=== PATIENT | male | born 1990 | race Caucasian/White ===

== ENCOUNTER → 2020-06-10 | Outpatient (CLI) | payer OTHER ==
[~2020-06-10] MED LIST: CLARITIN 10MG T10 MG PO; HYDROXYZINE HCL10 MG PO; LISINOPRIL10 MG PO; LORTAB 7.5-3251 EACH PO; PROAIR HFA8.5 GM INH
[2020-06-10 12:48] LABS: BUN/CREATININE RATIO 12 (0-10)
[2020-06-11 08:13] LABS: ALPHA-1-ANTITRYPSIN, SERUM 124 mg/dL (95-164)
[2020-06-11 09:13] LABS: HBSAG SCREEN Negative (Negative); HEP A AB, IGM Negative (Negative); HEP B CORE AB, IGM Negative (Negative); HEP C VIRUS AB <0.1 (0.0-0.9)
[2020-06-11 16:13] LABS: MITOCHONDRIAL (M2) ANTIBODY <20.0 Units (0.0-20.0)
== END ==
LOC: LAB 11:35
PROVIDERS: Family Medicine
DX: I10 Essential (primary) hypertension (principal); R74.8 Abnormal levels of other serum enzymes; R94.5 Abnormal results of liver function studies
CPT/HCPCS: 80053; 80074; 80076; 82103; 82728; 83540; 83550; 83735; 84550; 86038

== ENCOUNTER → 2020-11-14 | Outpatient (CLI) | payer OTHER ==
[2020-11-14 10:34] LABS: BUN/CREATININE RATIO 14 (0-10)
[2020-11-15 07:13] LABS: IMMUNOGLOBULIN A, QN, SERUM 215 mg/dL (90-386); IMMUNOGLOBULIN G, QN, SERUM 1201 mg/dL (603-1613); IMMUNOGLOBULIN M, QN, SERUM 111 mg/dL (20-172)
== END ==
LOC: LAB 08:19
PROVIDERS: Family Medicine; Internal Medicine Gastroenterology
DX: E78.5 Hyperlipidemia, unspecified (principal); I10 Essential (primary) hypertension; R74.8 Abnormal levels of other serum enzymes
CPT/HCPCS: 36415; 80053; 80061; 82784; 83516; 83735; 84550; 86038

== ENCOUNTER 2021-07-16 21:11 | Emergency (ER) | payer MEDICARE, OTHER | END 2021-07-16 22:59 | disposition left against medical advice (07) | LOC: ER1 21:11 | DX: Z53.21 Procedure and treatment not carried out due to patient leaving prior to being seen by health care provider (principal) ==

== ENCOUNTER → 2021-08-09 | Outpatient (CLI) | payer MEDICARE, OTHER | LOC: EXRD 15:42 | DX: M54.50 Low back pain, unspecified (principal) | CPT/HCPCS: 72110 ==

== ENCOUNTER → 2021-09-06 | Outpatient (CLI) | payer MEDICARE, OTHER | LOC: US 09:21 | DX: N28.1 Cyst of kidney, acquired (principal) ==

== ENCOUNTER → 2021-10-20 | Outpatient (CLI) | payer MEDICARE, OTHER ==
[2021-10-20 09:28] LABS: HEMOGLOBIN 16.4 gm/dl (14.0-17.5); RED BLOOD COUNT 5.33 M/UL (4.20-5.50); WHITE BLOOD COUNT 7.2 K/UL (4.5-11.0)
[2021-10-20 09:56] LABS: BUN/CREATININE RATIO 12 (0-10)
== END ==
LOC: LAB 08:24
PROVIDERS: Family Medicine
DX: R73.9 Hyperglycemia, unspecified (principal); E78.5 Hyperlipidemia, unspecified; I10 Essential (primary) hypertension
CPT/HCPCS: 36415; 80053; 80061; 83036; 83735; 85027